=== PATIENT | male | born 1985 | race African-American/Black ===

== ENCOUNTER 2020-06-03 17:05 | Emergency (ER) | payer OTHER ==
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
== END 2020-06-03 21:48 | disposition home or self-care (01) ==
LOC: JVIRT 17:05
DX: R07.9 Chest pain, unspecified (principal)
CPT/HCPCS: G2012-GT